=== PATIENT | female | born 1965 | race Caucasian/White ===

== ENCOUNTER 2018-01-11 11:42 | Emergency (ER) | payer OTHER ==
[~2018-01-11] VITALS: Ht 160 cm; Wt 86.2 kg
[~2018-01-11 11:42] MED LIST: FERROUS SULFATE27 MG PO; PREDNICOT20 MG PO; ZITHROMAX Z PA250 MG PO; ZOLOFT25 MG PO
[2018-01-11] MEDS ORDERED: AEROECLIPSE II1 EACH MC (11:56)
[2018-01-11] MEDS ORDERED: PREDNISONE50 MG PO (11:56)
[2018-01-11] MEDS ORDERED: PROVENTIL HFA6.7 GM INH (11:56)
[2018-01-11] MEDS ORDERED: AVPAK AZITHROM250 MG PO (11:56)
[2018-01-11] MEDS ORDERED: DUONEB 3 MG/3 ML3 M1 INH (11:56)
== END 2018-01-11 13:43 | disposition home or self-care (01) ==
LOC: ED
DX: J44.1 Chronic obstructive pulmonary disease with (acute) exacerbation (principal); F17.200 Nicotine dependence, unspecified, uncomplicated; Z79.899 Other long term (current) drug therapy